=== PATIENT | female | born 2000 | race Caucasian/White ===

== ENCOUNTER 2020-09-24 09:06 | Day surgery (SDC) | payer BC ==
[2020-09-23 11:34] VITALS: BMI 27.8
[2020-09-24] MEDS ORDERED: Lidocaine 1% MPF 2 ML VIAL ONE (10:03)
[2020-09-24] MEDS ORDERED: Azithromycin 500 MG in Sodium Chloride 0.9% 250 ML 250 ML IVPB SCH (10:45)
[2020-09-24] MEDS ORDERED: Lidocaine 1% PF 5 ML VIAL ONE (10:54)
[2020-09-24] MEDS ORDERED: PROPOFOL 20 ML ONE (10:54)
[2020-09-24] MEDS ORDERED: Dexamethasone 4 mg/ml Vial ONE (10:54)
[2020-09-24] MEDS ORDERED: Ondansetron PF 4 MG/2 ML Vial ONE (10:54)
[2020-09-24] MEDS ORDERED: Fentanyl 100 MCG/2 ML VIAL ONE (10:55)
[2020-09-24] MEDS ORDERED: Midazolam HCl 2 mg/2 ml Vial ONE (10:55)
[2020-09-24] MEDS ORDERED: Tranexamic Acid 650 MG TAB PO SCH (12:00)
== END 2020-09-24 13:20 | disposition home or self-care (01) ==
LOC: CSHSDC 09:06
PROVIDERS: ATTEND Obstetrics & Gynecology
PROC: 10D18ZZ Extraction of Products of Conception, Retained, Via Natural or Artificial Opening Endoscopic (ICD-10-PCS; principal; 2020-09-24)
DX: O04.6 Delayed or excessive hemorrhage following (induced) termination of pregnancy (principal); Z79.899 Other long term (current) drug therapy; Z88.0 Allergy status to penicillin
CPT/HCPCS: 76856; 88305; J0456; J1100; J2250; J2405; J2704; J3010; J7050